=== PATIENT | male | born 1955 | race Caucasian/White ===

== ENCOUNTER → 2019-01-22 | Outpatient (CLI) | payer OTHER ==
--- NOTE | 2019-01-24 15:27 | 24HR ---
[place] [address] HOLTER MONITOR REPORT Name: DYLANDANA LEXI Room: [facility]#: [id number] Admission: 01/22/19 Attend Phys: Yadi Morales Discharge: Date of : 53 Date of Service: 01/24/1943 Report #: [id number] THIS REPORT FOR: //name// [facility] Test Date: 2019-01-24 Test Time: 09:42:33 Pat Name: DANA RICHARDSON Department: Room: Gender: [employer] Management Officer: : 1955 Requested By: Yadi Morales Order Number: [id number] Smita MD: Johnny Garcia Interpretive Statements 1. sinus rhythm with sinus bradycardia and tachycardia 2. occasional pac 3. rare pvc 4. symptoms did not correlate with an arrhythmia Electronically Signed On 01-24-2019 15:27:27 CDT by Johnny Garcia [email or web address] <ELECTRONICALLY SIGNED> By: Johnny Garcia MD, [facility] 01/24/19 1527 0942 Johnny Garcia MD, FACC /EPI
== END ==
LOC: M.CRD 10:59
DX: I49.3 Ventricular premature depolarization (principal); R00.0 Tachycardia, unspecified; R00.2 Palpitations

== ENCOUNTER → 2019-02-05 | Outpatient (CLI) | payer OTHER ==
[2019-02-05 10:38] LABS: CHOLESTEROL 220 mg/dL (<200); HDL CHOLESTEROL 41 mg/dL (>40); LDL CHOLESTEROL 139 mg/dL (<100); SERUM ASSESSMENT Clear; TC:HDL 5.4 Ratio (Not establshd); TRIGLYCERIDE 201 mg/dL (<150); VLDL 40 mg/dL (<40)
--- NOTE | 2019-02-05 16:45 | 2DMMODE ---
[place] [address] 2 D/M-MODE ECHOCARDIOGRAM Name: RICHARDSONDANAJEREMÍAS ELLIOTT Room: [facility]#: [id number] Admission: 02/05/19 Attend Phys: Darion Cronin, Discharge: Date of : 53 Date of Service: 02/05/19 1644 Report #: [id number] THIS REPORT FOR: //name// APPROVED REPORT Study performed: 02/05/2019 13:55:36 EXAM: Comprehensive 2D, Doppler, and color-flow Echocardiogram/ Bubble Study Patient Location: Out-Patient BSA: 2.14 HR: 88 bpm BP: 140/72 mmHg Other Information Study Quality: Good Indications Dizziness and Vertigo Echo Enhancing Agent Indication: Rule out Shunt Agent(s) / Amount(s) Used: Agitated Saline 10 cc 2D Dimensions IVSd: 10.30 (7-11mm) LVOT Diam: 20.42 (18-24mm) LVDd: 35.90 mm PWd: 9.31 (7-11mm) Ascending Ao: 30.17 (22-36mm) LVDs: 16.46 (25-40mm) Aortic Root: 27.24 mm Volumes Left Atrial Volume (Systole) LA ESV Index: 14.00 mL/m2 Aortic Valve AoV Peak Camilo.: 0.93 m/s AO Peak Gr.: 3.45 mmHg LVOT Max P.39 mmHg AO Mean Gr.: 1.74 mmHg LVOT Mean P.40 mmHg LVOT Max V: 0.92 m/s AO V2 VTI: 13.30 cm LVOT Mean V: 0.53 m/s JOSÉ MIGUEL (VTI): 3.78 cm2 LVOT V1 VTI: 15.35 cm AI Warren: 2.20 m/s2 AI PHT: 627.19 [place] [address] 2 D/M-MODE ECHOCARDIOGRAM Name: RICHARDSONDANA Room: [facility]#: [id number] Admission: 02/05/19 Attend Phys: Darion Cronin, Discharge: Date of : 53 Date of Service: 02/05/19 1644 Report #: [id number] Mitral Valve E/A Ratio: 0.63 MV Decel. Time: 194.76 ms MV E Max Camilo.: 0.47 m/s MV PHT: 56.48 ms MVA (PHT): 3.90 cm2 TDI E/Lateral E': 9.40 E/Medial E': 6.71 Medial E' Camilo.: 0.07 m/s Lateral E' Camilo.: 0.05 m/s Pulmonary Valve PV Peak Camilo.: 0.79 m/s PV Peak Gr.: 2.51 mmHg Tricuspid Valve RAP Estimate: 5.00 mmHg TR Peak Gr.: 17.95 mmHg RVSP: 22.95 mmHg PA Pressure: 22.95 mmHg Left Ventricle The left ventricle is normal size. There is normal LV segmental wall motion. There is normal left ventricular wall thickness. Left ventricular systolic function is normal. The left ventricular ejection fraction is within the normal range. LVEF is 65-70%. Grade I - abnormal relaxation pattern. Right Ventricle The right ventricle is normal size. The right ventricular systolic function is normal. Atria The left atrium size is normal. Injection of bubbles documented no interatrial shunt. The right atrium size is normal. Aortic Valve The aortic valve is normal in structure. Mild aortic regurgitation. There is no aortic valvular stenosis. Mitral Valve The mitral valve is normal in structure. Mild mitral regurgitation. No evidence of mitral valve stenosis. Tricuspid Valve The tricuspid valve is normal in structure. [place] [address] 2 D/M-MODE ECHOCARDIOGRAM Name: DANA RICHARDSON Room: [facility]#: [id number] Admission: 02/05/19 Attend Phys: Darion Cronin, Discharge: Date of : 53 Date of Service: 02/05/19 1644 Report #: [id number] Pulmonic Valve The pulmonary valve is normal in structure. Mild to moderate pulmonic regurgitation. Great Vessels The aortic root is normal in size. IVC is normal in size and collapses >50% with inspiration. Pericardium There is no pericardial effusion. <Conclusion> LVEF is 65-70%. Mild aortic regurgitation. Mild mitral regurgitation. Injection of bubbles documented no interatrial shunt. Mild to moderate pulmonic regurgitation. <ELECTRONICALLY SIGNED> By: Johnny Garcia MD, [facility] 02/05/19 1644 43 [phone] Johnny Garcia MD, [facility] /INF
[2019-02-06 02:07] LABS: IgA 368 mg/dL (61-437); IgG 1174 mg/dL (700-1600); IgM 73 mg/dL (20-172)
--- NOTE | 2019-02-08 10:45 | EEG ---
[address] [address] EEG STUDY REPORT Name: DANA RICHARDSON Room: [facility]#: [id number] Admission: 02/05/19 Attend Phys: Darion Cronin MD Discharge: Date of : 53 Report #: [id number] THIS REPORT FOR: //name// CC: Yadi Cronin DATE OF SERVICE: 02/05/2019 This patient is being evaluated for episode of dizziness. The EEG was done by placing the electrode by standard 10-20 system of electrode placement. Both referential and sequential montages were used for recording. Background activity in this patient's EEG is about 9 Hz and 30 microvolt. There is a symmetrical activity. The patient became drowsy that is associated with bilateral slowing and vertex sharp waves. Throughout the record, no active epileptiform activity was noticed. IMPRESSION: This patient's EEG is within normal limit. Thank you very much for this referral. <ELECTRONICALLY SIGNED> By: Darion Cronin MD 02/08/19 1045 1448 1612[place] Cronin MD /nt
== END ==
LOC: M.CRD 01-31 13:54 → M.MRI 13:30 → M.CRD 14:00
PROVIDERS: Psychiatry & Neurology Neuromuscular Medicine
DX: I08.8 Other rheumatic multiple valve diseases (principal); G45.9 Transient cerebral ischemic attack, unspecified; R42 Dizziness and giddiness; R47.9 Unspecified speech disturbances; R20.2 Paresthesia of skin